=== PATIENT | female | born 1960 | race Caucasian/White ===

== ENCOUNTER 2017-08-07 20:50 | Inpatient (IN) | payer OTHER ==
[2017-08-07] MEDS ORDERED: NITROGLYCERIN (SL) 0.4 MG TAB SL (22:30)
[2017-08-07] MEDS ORDERED: BISACODYL (EC) 5 MG TAB PO (22:30)
[2017-08-07] MEDS ORDERED: ONDANSETRON 4 MG INJ IV (22:30)
[2017-08-07] MEDS ORDERED: NACL 0.9% 3 ML SYG IV (22:30)
[2017-08-07] MEDS: ACETAMINOPHEN 325 MG TAB PO (22:52)
[2017-08-07 23:16] LABS: ADD MAN DIFF? NO
[2017-08-07 23:19] LABS: BASOPHILS % 0.2 % (0.0-2.0); HEMATOCRIT 42.6 % (37.0-47.0); HEMOGLOBIN 13.3 g/dl (12.0-16.0); LYMPHOCYTES # 0.9 10^3/ul (0.8-2.9); LYMPHOCYTES % 7.8 % (15.0-51.0); MEAN CORPUSCULAR HEMOGLOBIN 27.3 pg (29.0-33.0); MEAN CORPUSCULAR HGB CONC 31.2 g/dl (32.0-37.0); MEAN CORPUSCULAR VOLUME 87.5 fl (82.0-101.0); MEAN PLATELET VOLUME 10.4 fl (7.4-10.4); MONOCYTE # 0.1 10^3/ul (0.3-0.9); MONOCYTES % 0.4 % (0.0-11.0); NEUTROPHIL # 10.9 10^3/ul (1.6-7.5); NEUTROPHILS % 90.9 % (39.0-77.0); PLATELET COUNT 374 10^3/UL (140-415); RED BLOOD COUNT 4.87 10^6/ul (4.20-5.40); RED CELL DISTRIBUTION WIDTH 13.7 % (11.5-14.5)
[2017-08-07 23:41] LABS: ALANINE AMINOTRANSFERASE 16 IU/L (13-69); ALBUMIN/GLOBULIN RATIO 1.21; ALKALINE PHOSPHATASE 109 IU/L (42-121); ANION GAP 18 (8-16); ASPARTATE AMINO TRANSFERASE 13 IU/L (15-46); BILIRUBIN,INDIRECT 0.1 mg/dl (0-1.1); BILIRUBIN,TOTAL 0.1 mg/dl (0.2-1.3); BLOOD UREA NITROGEN 15 mg/dl (7-20); CALCIUM 9.2 mg/dl (8.4-10.2); CARBON DIOXIDE 25 mmol/L (21-31); CHLORIDE 105 mmol/L (97-110); CREATINE KINASE 28 IU/L (23-200); CREATININE 0.66 mg/dl (0.44-1.00); GLUCOSE 190 mg/dl (70-220); POTASSIUM 3.7 mmol/L (3.5-5.1); SODIUM 144 mmol/L (135-144); TOTAL PROTEIN 7.3 g/dl (6.1-8.1)
[2017-08-07 23:52] LABS: CK INDEX 1.1; CK-MB 0.31 ng/ml (0.0-2.4); TROPONIN-I < 0.012 ng/ml (0.000-0.120)
[2017-08-08 00:20] LABS: ERYTHROCYTE SEDIMENTATION RATE 20 mm/Hr (0-30)
[2017-08-08] MEDS: LORAZEPAM 2 MG INJ IV (04:59)
[2017-08-08 06:05] LABS: ADD MAN DIFF? NO
[2017-08-08 06:22] LABS: BASOPHILS % 0.1 % (0.0-2.0); HEMATOCRIT 37.2 % (37.0-47.0); HEMOGLOBIN 12.1 g/dl (12.0-16.0); LYMPHOCYTES # 1.6 10^3/ul (0.8-2.9); LYMPHOCYTES % 11.2 % (15.0-51.0); MEAN CORPUSCULAR HEMOGLOBIN 27.6 pg (29.0-33.0); MEAN CORPUSCULAR HGB CONC 32.5 g/dl (32.0-37.0); MEAN CORPUSCULAR VOLUME 84.9 fl (82.0-101.0); MEAN PLATELET VOLUME 10.4 fl (7.4-10.4); MONOCYTE # 0.6 10^3/ul (0.3-0.9); MONOCYTES % 4.2 % (0.0-11.0); NEUTROPHIL # 12.1 10^3/ul (1.6-7.5); NEUTROPHILS % 83.7 % (39.0-77.0); PLATELET COUNT 348 10^3/UL (140-415); RED BLOOD COUNT 4.38 10^6/ul (4.20-5.40); RED CELL DISTRIBUTION WIDTH 13.8 % (11.5-14.5)
[2017-08-08 06:22] LABS: WHITE BLOOD COUNT 14.4 10^3/ul (4.8-10.8)
[2017-08-08 06:46] LABS: ALANINE AMINOTRANSFERASE 11 IU/L (13-69); ALBUMIN 3.4 g/dl (3.3-4.9); ALBUMIN/GLOBULIN RATIO 1.21; ALKALINE PHOSPHATASE 85 IU/L (42-121); ANION GAP 16 (8-16); ASPARTATE AMINO TRANSFERASE 9 IU/L (15-46); BILIRUBIN,INDIRECT 0.1 mg/dl (0-1.1); BILIRUBIN,TOTAL 0.1 mg/dl (0.2-1.3); BLOOD UREA NITROGEN 11 mg/dl (7-20); CARBON DIOXIDE 25 mmol/L (21-31); CHLORIDE 105 mmol/L (97-110); CHOL/HDL RATIO 3.4 RATIO; CHOLESTEROL 158 mg/dl (100-200); CREATININE 0.49 mg/dl (0.44-1.00); GLUCOSE 127 mg/dl (70-220); HDL CHOLESTEROL 46 mg/dl (37-92); LDL CHOLESTEROL,CALCULATED 99 mg/dl; MAGNESIUM 1.9 mg/dl (1.7-2.5); POTASSIUM 4.1 mmol/L (3.5-5.1); SODIUM 142 mmol/L (135-144); TOTAL PROTEIN 6.2 g/dl (6.1-8.1); TRIGLYCERIDES 64 mg/dl (0-149)
[2017-08-08 06:47] LABS: CREATINE KINASE 27 IU/L (23-200)
[2017-08-08 07:00] LABS: CK INDEX 1.1; CK-MB 0.29 ng/ml (0.0-2.4); TROPONIN-I < 0.012 ng/ml (0.000-0.120)
[2017-08-08 07:06] LABS: LACTIC ACID 3.1 mmol/L (0.5-2.0)
[2017-08-08 07:15] LABS: THYROID STIMULATING HORMONE 0.339 MIU/L (0.465-4.680)
[2017-08-08 07:18] LABS: HEMOGLOBIN A1C 5.7 % (0-5.9)
[2017-08-08] MEDS: SOD CHLORIDE 0.9% 500 ML IV (08:21)
[2017-08-08] MEDS: GABAPENTIN 300 MG CAP PO ×3 (08:21→21:17)
[2017-08-08] MEDS: predniSONE 5 MG TAB PO (08:37)
[2017-08-08] MEDS: morphine 2 MG INJ IV ×3 (08:37→21:18)
[2017-08-08] MEDS: SOD CHLORIDE 0.9% 1,000 ML IV ×2 (09:00→15:43)
[2017-08-08 09:53] LABS: LACTIC ACID 2.2 mmol/L (0.5-2.0)
[2017-08-08 16:12] LABS: ADD UMIC NO; UR ASCORBIC ACID NEGATIVE (NEGATIVE); UR BILIRUBIN (Dip) NEGATIVE (NEGATIVE); UR BLOOD (Dip) NEGATIVE (NEGATIVE); UR CLARITY CLEAR (CLEAR); UR COLOR COLORLESS (YELLOW); UR GLUCOSE (Dip) NEGATIVE (NEGATIVE); UR KETONES (Dip) NEGATIVE (NEGATIVE); UR LEUKOCYTE ESTERASE (Dip) NEGATIVE Leu/ul (NEGATIVE); UR NITRITE (Dip) NEGATIVE (NEGATIVE); UR SPECIFIC GRAVITY (Dip) 1.005 (1.003-1.030); UR TOTAL PROTEIN (Dip) NEGATIVE (NEGATIVE); UR UROBILINOGEN (Dip) NEGATIVE (NEGATIVE)
[2017-08-08] MEDS: METHYLPREDNISOLONE 4 MG TAB PO ×2 (16:18→21:17)
[2017-08-08 16:28] LABS: LACTIC ACID 3.9 mmol/L (0.5-2.0)
[2017-08-08 21:04] LABS: LACTIC ACID 3.5 mmol/L (0.5-2.0)
[2017-08-08 21:15] LABS: RHEUMATOID FACTOR POSITIVE (NEGATIVE)
[2017-08-08] MEDS: RISPERIDONE 1 MG TAB PO (21:17)
[2017-08-09] MEDS: PANTOPRAZOLE (EC) 40 MG TAB PO (05:34)
[2017-08-09] MEDS: KETOROLAC 30 MG INJ IV ×2 (05:35→12:55)
[2017-08-09] MEDS: METHYLPREDNISOLONE 4 MG TAB PO ×3 (09:11→20:40)
[2017-08-09] MEDS: GABAPENTIN 300 MG CAP PO ×3 (09:11→20:40)
[2017-08-09] MEDS: predniSONE 5 MG TAB PO (09:11)
[2017-08-09] MEDS: SOD CHLORIDE 0.9% 1,000 ML IV ×3 (09:13→22:30)
[2017-08-09 15:35] LABS: ADD MAN DIFF? NO
[2017-08-09 15:37] LABS: WHITE BLOOD COUNT 10.5 10^3/ul (4.8-10.8)
[2017-08-09 15:37] LABS: BASOPHILS % 0.3 % (0.0-2.0); EOSINOPHILS # 0.1 10^3/ul (0.0-0.5); EOSINOPHILS % 0.6 % (0.0-7.0); HEMATOCRIT 37.9 % (37.0-47.0); HEMOGLOBIN 11.9 g/dl (12.0-16.0); LYMPHOCYTES # 1.5 10^3/ul (0.8-2.9); LYMPHOCYTES % 14.4 % (15.0-51.0); MEAN CORPUSCULAR HEMOGLOBIN 27.7 pg (29.0-33.0); MEAN CORPUSCULAR HGB CONC 31.4 g/dl (32.0-37.0); MEAN CORPUSCULAR VOLUME 88.1 fl (82.0-101.0); MEAN PLATELET VOLUME 10.5 fl (7.4-10.4); MONOCYTE # 0.5 10^3/ul (0.3-0.9); MONOCYTES % 4.7 % (0.0-11.0); NEUTROPHIL # 8.3 10^3/ul (1.6-7.5); NEUTROPHILS % 78.9 % (39.0-77.0); PLATELET COUNT 325 10^3/UL (140-415); RED CELL DISTRIBUTION WIDTH 13.8 % (11.5-14.5)
[2017-08-09 16:05] LABS: MAGNESIUM 1.7 mg/dl (1.7-2.5)
[2017-08-09 16:05] LABS: ALANINE AMINOTRANSFERASE 23 IU/L (13-69); ALBUMIN 3.2 g/dl (3.3-4.9); ALBUMIN/GLOBULIN RATIO 1.03; ALKALINE PHOSPHATASE 99 IU/L (42-121); ANION GAP 14 (8-16); ASPARTATE AMINO TRANSFERASE 11 IU/L (15-46); BILIRUBIN,INDIRECT 0.1 mg/dl (0-1.1); BILIRUBIN,TOTAL 0.1 mg/dl (0.2-1.3); BLOOD UREA NITROGEN 11 mg/dl (7-20); C-REACTIVE PROTEIN 1.2 mg/dl (0.0-0.9); CALCIUM 8.9 mg/dl (8.4-10.2); CARBON DIOXIDE 26 mmol/L (21-31); CHLORIDE 106 mmol/L (97-110); GLUCOSE 123 mg/dl (70-220); POTASSIUM 4.4 mmol/L (3.5-5.1); SODIUM 142 mmol/L (135-144); TOTAL PROTEIN 6.3 g/dl (6.1-8.1)
[2017-08-09 16:51] LABS: ERYTHROCYTE SEDIMENTATION RATE 12 mm/Hr (0-30)
[2017-08-09] MEDS: RISPERIDONE 1 MG TAB PO (20:40)
[2017-08-09] MEDS: morphine 2 MG INJ IV (20:41)
[2017-08-10] MEDS: PANTOPRAZOLE (EC) 40 MG TAB PO (05:58)
[2017-08-10] MEDS: SOD CHLORIDE 0.9% 1,000 ML IV ×2 (05:58→11:27)
[2017-08-10] MEDS: morphine 2 MG INJ IV ×2 (05:59→11:24)
[2017-08-10] MEDS ORDERED: hydrALAzine 20 MG INJ IV (06:00)
[2017-08-10] MEDS: predniSONE 5 MG TAB PO (09:13)
[2017-08-10] MEDS: METHYLPREDNISOLONE 4 MG TAB PO (09:13)
[2017-08-10] MEDS: GABAPENTIN 300 MG CAP PO ×3 (09:13→20:30)
[2017-08-10] MEDS ORDERED: IBUPROFEN 800 MG TAB PO (12:30)
[2017-08-10] MEDS: NAPROXEN 500 MG TAB PO ×2 (15:08→22:29)
[2017-08-10 17:11] LABS: ANA SCREEN NEGATIVE (NEGATIVE)
[2017-08-10] MEDS: morphine LIQ (10 MG/5 ML) CUP PO (18:41)
[2017-08-10] MEDS: RISPERIDONE 1 MG TAB PO (20:30)
[2017-08-11] MEDS: PANTOPRAZOLE (EC) 40 MG TAB PO (05:57)
[2017-08-11] MEDS: morphine LIQ (10 MG/5 ML) CUP PO ×3 (05:58→21:13)
[2017-08-11 07:57] LABS: ADD MAN DIFF? NO
[2017-08-11 08:03] LABS: BASOPHILS % 0.4 % (0.0-2.0); EOSINOPHILS # 0.1 10^3/ul (0.0-0.5); EOSINOPHILS % 1.1 % (0.0-7.0); HEMATOCRIT 36.8 % (37.0-47.0); HEMOGLOBIN 11.8 g/dl (12.0-16.0); LYMPHOCYTES # 3.4 10^3/ul (0.8-2.9); LYMPHOCYTES % 31.3 % (15.0-51.0); MEAN CORPUSCULAR HEMOGLOBIN 27.8 pg (29.0-33.0); MEAN CORPUSCULAR HGB CONC 32.1 g/dl (32.0-37.0); MEAN CORPUSCULAR VOLUME 86.8 fl (82.0-101.0); MEAN PLATELET VOLUME 10.4 fl (7.4-10.4); MONOCYTE # 0.8 10^3/ul (0.3-0.9); MONOCYTES % 7.3 % (0.0-11.0); NEUTROPHIL # 6.5 10^3/ul (1.6-7.5); NEUTROPHILS % 58.9 % (39.0-77.0); PLATELET COUNT 287 10^3/UL (140-415); RED BLOOD COUNT 4.24 10^6/ul (4.20-5.40); RED CELL DISTRIBUTION WIDTH 13.9 % (11.5-14.5)
[2017-08-11 08:22] LABS: ALANINE AMINOTRANSFERASE 45 IU/L (13-69); ALBUMIN 3.4 g/dl (3.3-4.9); ALBUMIN/GLOBULIN RATIO 1.17; ALKALINE PHOSPHATASE 96 IU/L (42-121); ANION GAP 16 (8-16); ASPARTATE AMINO TRANSFERASE 28 IU/L (15-46); BILIRUBIN,INDIRECT 0.1 mg/dl (0-1.1); BILIRUBIN,TOTAL 0.1 mg/dl (0.2-1.3); BLOOD UREA NITROGEN 16 mg/dl (7-20); CALCIUM 8.1 mg/dl (8.4-10.2); CARBON DIOXIDE 30 mmol/L (21-31); CHLORIDE 101 mmol/L (97-110); CREATININE 0.53 mg/dl (0.44-1.00); GLUCOSE 86 mg/dl (70-220); POTASSIUM 3.7 mmol/L (3.5-5.1); SODIUM 143 mmol/L (135-144); TOTAL PROTEIN 6.3 g/dl (6.1-8.1)
[2017-08-11 08:33] LABS: FREE T4 (FREE THYROXINE) 0.92 ng/dl (0.64-1.79)
[2017-08-11 09:22] LABS: TRIIODOTHYRONINE 0.99 ng/ml (0.97-1.69)
[2017-08-11] MEDS: GABAPENTIN 300 MG CAP PO ×3 (09:50→21:12)
[2017-08-11] MEDS: NAPROXEN 500 MG TAB PO ×2 (09:50→21:12)
[2017-08-11] MEDS: predniSONE 10 MG TAB PO (09:50)
[2017-08-11] MEDS: RISPERIDONE 1 MG TAB PO (21:13)
[2017-08-12] MEDS: morphine LIQ (10 MG/5 ML) CUP PO (02:03)
[2017-08-12] MEDS: PANTOPRAZOLE (EC) 40 MG TAB PO (06:09)
[2017-08-12] MEDS: NAPROXEN 500 MG TAB PO ×2 (08:41→21:13)
[2017-08-12] MEDS: GABAPENTIN 300 MG CAP PO ×3 (08:41→21:13)
[2017-08-12] MEDS: predniSONE 10 MG TAB PO (08:41)
[2017-08-12] MEDS: RISPERIDONE 1 MG TAB PO (21:13)
[2017-08-13] MEDS: PANTOPRAZOLE (EC) 40 MG TAB PO (06:58)
[2017-08-13] MEDS: GABAPENTIN 300 MG CAP PO ×3 (09:17→22:01)
[2017-08-13] MEDS: NAPROXEN 500 MG TAB PO ×2 (09:17→22:01)
[2017-08-13] MEDS: predniSONE 10 MG TAB PO (09:18)
[2017-08-13] MEDS: RISPERIDONE 1 MG TAB PO (22:01)
[2017-08-14] MEDS: PANTOPRAZOLE (EC) 40 MG TAB PO (06:26)
[2017-08-14] MEDS: morphine LIQ (10 MG/5 ML) CUP PO (06:52)
[2017-08-14] MEDS: NAPROXEN 500 MG TAB PO (11:08)
[2017-08-14] MEDS: GABAPENTIN 300 MG CAP PO ×2 (11:08→13:51)
[2017-08-14] MEDS: DOCUSATE SODIUM 100 MG CAP PO (11:08)
[2017-08-14] MEDS: predniSONE 10 MG TAB PO (11:08)
== END 2017-08-14 13:55 | DRG 313 ==
LOC: MS4 20:50
DX: R07.89 Other chest pain (principal); F17.210 Nicotine dependence, cigarettes, uncomplicated; M06.9 Rheumatoid arthritis, unspecified; F31.9 Bipolar disorder, unspecified
CPT/HCPCS: 80053; 80061; 81003; 82550; 82553; 83036; 83605; 83735; 84439; 84443; 84480; 84484; 85025; 85651; 86038; 86140; 86430; 87040; 87081; 87086; 93005; 93306; 97110; 97116; 97161; 97165; 99217; G0378

== ENCOUNTER 2017-09-03 12:29 | Emergency (ER) | payer OTHER ==
[2017-09-03] MEDS: KETOROLAC 30 MG INJ IV (13:44)
[2017-09-03 13:45] LABS: ADD MAN DIFF? NO
[2017-09-03] MEDS: SOD CHLORIDE 0.9% 1,000 ML IV (13:45)
[2017-09-03 13:49] LABS: BASOPHILS % 0.4 % (0.0-2.0); EOSINOPHILS # 0.1 10^3/ul (0.0-0.5); HEMATOCRIT 40.2 % (37.0-47.0); HEMOGLOBIN 12.8 g/dl (12.0-16.0); LYMPHOCYTES # 1.7 10^3/ul (0.8-2.9); LYMPHOCYTES % 14.6 % (15.0-51.0); MEAN CORPUSCULAR HGB CONC 31.8 g/dl (32.0-37.0); MEAN CORPUSCULAR VOLUME 84.8 fl (82.0-101.0); MONOCYTE # 0.7 10^3/ul (0.3-0.9); MONOCYTES % 6.3 % (0.0-11.0); NEUTROPHIL # 8.8 10^3/ul (1.6-7.5); NEUTROPHILS % 77.4 % (39.0-77.0); PLATELET COUNT 453 10^3/UL (140-415); RED BLOOD COUNT 4.74 10^6/ul (4.20-5.40); RED CELL DISTRIBUTION WIDTH 13.1 % (11.5-14.5)
[2017-09-03 13:49] LABS: WHITE BLOOD COUNT 11.4 10^3/ul (4.8-10.8)
[2017-09-03 14:12] LABS: ALANINE AMINOTRANSFERASE 9 IU/L (13-69); ALBUMIN 4.1 g/dl (3.3-4.9); ALBUMIN/GLOBULIN RATIO 1.05; ALKALINE PHOSPHATASE 76 IU/L (42-121); ANION GAP 16 (8-16); ASPARTATE AMINO TRANSFERASE 23 IU/L (15-46); BILIRUBIN,INDIRECT 0.3 mg/dl (0-1.1); BILIRUBIN,TOTAL 0.3 mg/dl (0.2-1.3); BLOOD UREA NITROGEN 13 mg/dl (7-20); CALCIUM 9.5 mg/dl (8.4-10.2); CARBON DIOXIDE 24 mmol/L (21-31); CHLORIDE 107 mmol/L (97-110); GLUCOSE 182 mg/dl (70-220); POTASSIUM 4.5 mmol/L (3.5-5.1); SODIUM 142 mmol/L (135-144)
[2017-09-03] MEDS: morphine 4 MG/ML VIAL IV (16:16)
[2017-09-03] MEDS: ONDANSETRON 4 MG INJ IV (16:16)
[2017-09-03 16:22] LABS: ADD UMIC NO; UR ASCORBIC ACID 40 mg/dL (NEGATIVE); UR BILIRUBIN (Dip) NEGATIVE (NEGATIVE); UR BLOOD (Dip) NEGATIVE (NEGATIVE); UR CLARITY CLEAR (CLEAR); UR COLOR YELLOW (YELLOW); UR GLUCOSE (Dip) NEGATIVE (NEGATIVE); UR KETONES (Dip) NEGATIVE (NEGATIVE); UR LEUKOCYTE ESTERASE (Dip) NEGATIVE Leu/ul (NEGATIVE); UR NITRITE (Dip) NEGATIVE (NEGATIVE); UR SPECIFIC GRAVITY (Dip) 1.019 (1.003-1.030); UR TOTAL PROTEIN (Dip) NEGATIVE (NEGATIVE); UR UROBILINOGEN (Dip) NEGATIVE (NEGATIVE)
== END 2017-09-03 18:30 | disposition home or self-care (01) ==
LOC: FTE 12:29
DX: R52 Pain, unspecified (principal); M06.9 Rheumatoid arthritis, unspecified; F17.210 Nicotine dependence, cigarettes, uncomplicated
CPT/HCPCS: 36415; 80053; 81003; 85025; 93005; 96374; 96375; 99284-25